=== PATIENT | female | born 1990 | race Caucasian/White ===

== ENCOUNTER 2021-06-16 08:55 | Emergency (ER) | payer OTHER ==
[~2021-06-16 08:55] MED LIST: IBU600 MG PO
[2021-06-16 09:56] LABS: HEMOGLOBIN 11.3 gm/dl (12.3-15.3); RED BLOOD COUNT 4.96 M/UL (4.00-5.10)
[2021-06-16 10:16] LABS: BUN/CREATININE RATIO 11 (0-10)
[2021-06-16] MEDS ORDERED: CARAFATE1 GM PO (12:42)
[2021-06-16] MEDS ORDERED: OMEPRAZOLE40 MG PO (12:42)
== END 2021-06-16 13:00 | disposition home or self-care (01) ==
LOC: ER1 08:55
PROVIDERS: Emergency Medicine
DX: R10.10 Upper abdominal pain, unspecified (principal); I10 Essential (primary) hypertension; Z87.442 Personal history of urinary calculi
CPT/HCPCS: 76705; 80053; 83690; 84703; 85025; 99284; J7120

== ENCOUNTER 2021-10-06 17:55 | Emergency (ER) | payer SELFPAY ==
[~2021-10-06 17:55] MED LIST changes: +CARAFATE1 GM PO; +OMEPRAZOLE40 MG PO
[2021-10-06 21:25] LABS: HEMOGLOBIN 11.8 gm/dl (12.3-15.3); RED BLOOD COUNT 4.95 M/UL (4.00-5.10); WHITE BLOOD COUNT 14.7 K/UL (4.5-11.0)
[2021-10-06 21:49] LABS: BUN/CREATININE RATIO 11 (0-10)
[2021-10-06] MEDS ORDERED: BACTRIM DS TAB1 EACH PO (21:55)
[2021-10-06] MEDS ORDERED: KEFLEX CAP 250250 MG PO (21:58)
== END 2021-10-06 22:20 | disposition home or self-care (01) ==
LOC: ER1 17:55
PROVIDERS: Physician Assistant
DX: N61.1 Abscess of the breast and nipple (principal); Z87.442 Personal history of urinary calculi
CPT/HCPCS: 10060; 80053; 83605; 85025; 85652; 86140; 99283